=== PATIENT | male | born 1985 | race Native Hawaiian/Other Pacific Islander ===

== ENCOUNTER 2019-10-08 12:57 | Outpatient (CLI) | payer OTHER ==
--- NOTE | 2019-10-08 17:21 | MRI Report ---
Reason: NECK PAIN, RT RADICULAR SYMPTOMS Procedure Date: 10/08/2019 Accession Number: [id number] / [id number] Procedure: MRI - Cervical Spine W/O CPT Code: Final Report FULL RESULT: EXAM: MRI CERVICAL SPINE WITHOUT CONTRAST EXAM DATE: 10/08/2019 01:46 PM. CLINICAL HISTORY: Neck pain, right radicular symptoms. COMPARISONS: None. TECHNIQUE: Multiplanar, multisequence T1-weighted and fluid-sensitive sequences of the cervical spine without contrast. Other: None. FINDINGS: Neurologic Structures: The visualized posterior fossa structures are unremarkable. No signal abnormality in the visualized spinal cord. Alignment: No scoliosis or spondylolisthesis. Bone Marrow: No gross fractures or bone lesions. No marrow edema. Interspace Levels/Facets: C1-C2: Unremarkable. C2-C3: Unremarkable. C3-C4: Annular tear, focal central disk protrusion is present with mild cord indentation. Mild to moderate central stenosis. Mild bilateral foraminal stenosis. Series 801 image 21. C4-C5: Disk osteophyte complex is present, slight bulging of the ventral cord. The AP diameter of the canal is 8.2 mm. Mild to moderate central stenosis. Moderate bilateral foraminal stenosis. C5-C6: Disk osteophyte is quite prominent at this level. Disk extrusion seen left paracentral. No CSF surrounds cord, severe central stenosis, no abnormal cord signal, however. Series 301 image 8, series 801 image 13. AP distance of the canal in the midline is 7.5 mm. Severe central stenosis, severe bilateral foraminal stenosis. This focal extrusion is 2 mm from side to side, 5 mm from front to back and 9 mm from top to bottom. C6-C7: Left paracentral focal disk protrusion/extrusion is present with some indentation of the cord. No abnormal cord signal. The AP distance of the canal is 8 mm. Focal left paracentral extrusion is 7.7 x 4.7 mm transversely and extends for a mild distance of 6.9 mm. Series 801 image 9, series 301 image 9. Severe central stenosis. Severe bilateral foraminal stenosis. C7-T1: Minimal disk dehydration, otherwise unremarkable, no stenosis. Musculature: Mild fatty atrophy of the multifidus muscle is seen. Other: The paravertebral and prevertebral soft tissues are normal. IMPRESSION: 1. Spinal cord and posterior fossa appear unremarkable. In particular, no focal areas of abnormal increased T2 signal in the spinal cord. 2. C2-C3 is normal. 3. C3-C4 shows mild to moderate central stenosis and mild bilateral foraminal stenosis. 4. C4-C5 shows disk osteophyte complex in AP diameter of the canal measuring 8.2 mm. Mild central stenosis. Moderate bilateral foraminal stenosis. 5. C5-C6 shows disk osteophyte complex, disk extrusion seen left paracentral. No CSF surrounds the cord. Severe central stenosis. Severe bilateral foraminal stenosis also seen. 6. C6-C7 shows left paracentral focal disk protrusion/extrusion. Severe central stenosis. Severe bilateral foraminal stenosis. 7. C7-T1 shows minimal disk dehydration, otherwise unremarkable. No stenosis. [facility]
== END 2019-10-08 12:58 | disposition home or self-care (01) ==
LOC: DI 12:57
DX: M50.21 Other cervical disc displacement, high cervical region (principal); M50.31 Other cervical disc degeneration, high cervical region; M48.02 Spinal stenosis, cervical region
CPT/HCPCS: 72141

== ENCOUNTER 2021-06-22 14:01 | Outpatient (CLI) | payer OTHER ==
[2021-06-22 14:49] VITALS: BP 115/79
--- NOTE | 2021-06-22 14:49 | SLEEP CARE CONSULTATION ---
Information from patient questionnaire entered by Jeny Torres. I have reviewed and concur with the information entered by Jeny Torres. This document represents the service I personally performed and the decisions made by me, Doretha Blevins ARNP. History of Present Illness Service Date and Time: 06/22/2021 1401 Reason for Visit: New patient Chief Complaint: reports: Unrefreshed sleep, Snoring, Excessive daytime sleepiness, Observed pauses in breathing, Frequent awakenings at night Date of Onset: 5-7 years Usual bedtime: 10 pm Time it takes to fall asleep: 30-60 minutes Snores at night: Yes Observed to quit breathing while asleep: Yes Sleeps alone due to snoring: No Number of times waking at night: 2-4 Reasons for waking at night: reports: Snoring, Gasping for air. denies: Choking Toss, Turn, or Twitch while sleeping: Yes Recalls having dreams: Yes Usually gets out of bed at: 5 - 5:15 am Feels refreshed in the morning: No Morning headache: Yes (resolves sometimes in 30-60 minutes; 3 times a week) Sleepy or fatigued during the day: Yes Ever fallen asleep while driving: Yes (drowsy driving, no accidents) Takes day naps: No Dreams during day naps: No Prior sleep studies: No Additional HPI information: I had the pleasure of seeing TED CUEVAS today regarding the possibility of him having a sleep disorder. His current complaints are frequent night awakenings, snoring and pauses in breathing when sleeping. His tells him he snores and then he will stop. He will then take a deeper breath and continue snoring. He will wake up gasping for air and 2 times a night he wakes up to a "hard" snore. He feels like it it restricting his breathing. He states the act of going to sleep and staying asleep is difficulty. He has had a neck injury in the past, herniation/bulge in neck. This can make it hard to get comfortable enough to go to sleep quickly. He usually does not feel rested in the morning. He will wake up with a headache about 3 times a week. He wakes up feeling "hung over" with red eyes mostly. 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 Patient is and lives in [place]. Have you smoked in the past 12 months: Yes Cigarettes per day (20/pack): 10 Years of smokin Smoking Pack Years: 10.0 Alcohol use: Yes Alcohol amount and frequency: 1-2 drinks every 2 weeks Caffeine use: Yes Caffeine amount and frequency: 2-3 drinks a day Family History Family history of sleep disordered breathing: Yes Family Hx Sleep Apnea: Father: Snoring, Sibling: Snoring Allergies and Home Medications Drug allergies reviewed: Yes (NKDA) Home medication list reviewed: Yes (no daily medications) Allergy and home medication list: Robaxin, prn for neck/shoulder pain Review of Systems Weight gain over past 5 years: 20 Cardiovascular: denies: high blood pressure Gastrointestinal: reports: heartburn Neurological: denies: headaches Psychiatric: denies: anxiety, depression Ear/Nose/Throat: reports: wisdom teeth removed. denies: tonsillectomy Musculoskeletal: reports: joint pain, back pain, muscle pain or cramping, other (herniation and buldge disk in neck) Immunologic: reports: allergies to food or environment (agave oil - rash) Physical Exam Blood Pressure: 115/79 Cuff size: wrist Heart Rate: 64 O2 Saturation: 98 Height: 5 ft 4 in Weight: 157 lb Body Mass Index: 26.9 BMI Classification: Overweight Neck circumference: 16.2 (inches) Nostrils: partially obstructed Mouth and throat: narrow oropharynx Soft palate: long Hard palate: normal Uvula visualization: 25% Mallampati Class III Tongue: normal in size Tonsils: 2+ Neck: normal w/o lymphadenopathy or thyromegaly Heart: regular rate and rhythm Lungs: clear bilaterally Impression and Plan 1. Suspected Obstructive Sleep Apnea-Hypopnea Syndrome, as suggested by a history of loud and irregular snoring, observed cessation of breath while asleep, gasping or choking in sleep, morning headache, frequent awakening during the night, unrefreshed sleep, cognitive impairment, and excessive daytime sleepiness. Narrow oropharynx and obesity are common predisposing factors for obstructive sleep apnea-hypopnea syndrome. I recommend proceeding to polysomnography to confirm the diagnosis and to assess severity. If the patient has significant sleep disordered breathing, a manual CPAP titration study will also be performed to find the optimal treatment pressure. I informed the patient of what the sleep studies involve and after some discussion, obtained agreement to proceed. The pathophysiology of obstructive sleep apnea-hypopnea syndrome was discussed with the patient and health risks of cardiovascular and cerebrovas cular disease if not treated. AAS brochure for obstructive sleep apnea-hypopnea syndrome given and reviewed. Risks of drowsy driving discussed in detail and patient advised to avoid long distance driving and to taffy puller at the first sign of drowsiness. Patient agreed to plan. * Schedule polysomnography +- manual CPAP titration study and return in 1-2 weeks after the study to discuss result and initiate therapy. * Avoid long distance driving or driving when feeling sleepy. * Avoid alcohol, sedative and muscle relaxant around bedtime. * Attempt to lose weight. * Review instructions provided by trained office staff on how to prepare for the sleep study. * Return for follow-up after sleep study completed. Counseling Topics: Weight loss health impact Visit Type: In Office Time Spent with Patient (minutes): 32 Provider Statement: I spent 100% of the Face to Face Visit with the patient with greater than 50% spent counseling the patient and coordination of care.
== END 2021-06-22 14:02 | disposition home or self-care (01) ==
LOC: SC 14:01
PROVIDERS: ATTEND Nurse Practitioner Family
DX: R06.83 Snoring (principal); R06.81 Apnea, not elsewhere classified; R51.9 Headache, unspecified; G47.8 Other sleep disorders; R41.89 Other symptoms and signs involving cognitive functions and awareness; G47.10 Hypersomnia, unspecified; E66.3 Overweight; Z68.26 Body mass index [BMI] 26.0-26.9, adult
CPT/HCPCS: 99203; 99212

== ENCOUNTER 2021-06-28 08:45 | Outpatient (CLI) | payer OTHER | END 2021-06-28 08:46 | disposition home or self-care (01) | LOC: SC 08:45 | PROVIDERS: ATTEND Nurse Practitioner Family | DX: G47.33 Obstructive sleep apnea (adult) (pediatric) (principal); R09.02 Hypoxemia | CPT/HCPCS: 95806 ==

== ENCOUNTER 2021-07-07 13:17 | Outpatient (CLI) | payer OTHER ==
--- NOTE | 2021-07-07 13:48 | SLEEP CARE CONSULTATION ---
Information from patient questionnaire entered by Jeny Torres. I have reviewed and concur with the information entered by Jeny Torres. This document represents the service I personally performed and the decisions made by , Doretha Blevins ARNP. History of Present Illness Service Date and Time: 07/07/2021 1317 Initial [place] Sleepiness Scale score: 17 (in 2020) Current [place] Sleepiness Scale score: 17 Additional HPI information: TED CUEVAS returns for follow up and results of the recently performed home sleep study. I explained the pathophysiology behind obstructive sleep apnea. We then spent quite a bit of time discussing different treatment options. For mild obstructive sleep apnea, surgery and oral appliance are alternatives to nasal CPAP therapy but in moderate or severe cases, nasal CPAP is the most effective and reliable treatment. Because apnea is primarily in supine position, then positional management therapy could be effective. Methods discussed such as positioning with pillows, using a T-shirt with tennis balls in the back, and shown commercial products that have a pillow format on back to prevent supine sleep. I reviewed the impact of weight changes on sleep apnea and strongly recommended losing weight. After some discussion, the patient opted to go with the nasal CPAP therapy. Nasal autoCPAP set at 4-15 cmH20 will be ordered with rationale explained. A manual titration study will be ordered if unable to find optimal pressure with office adjustments. I explained how CPAP machine works with sample devices [employer] Dreamstation and [employer] [id number] and what to expect when using the machine. Using CPAP every night in order to get used to it was emphasized. Patient advised to put CPAP mask on before getting into bed so as not to fall asleep without CPAP. To assist acclimation to CPAP use, it could also be used for a short time during day while reading or watching TV. The patient was instructed to call the CPAP supplier to discuss any mechanical problem that may occur. If the mask given is uncomfortable or is difficult to keep on through the night even with adjustment, contact the CPAP supplier as many will replace with another mask style if notified before 30 days. If snoring or perceives is not getting enough air or too much air from the machine, notify this office. [facility] patient education PAP tips reviewed and given to patient. Patient counseled not drink alcohol less than 4 hours before bedtime as it can increase snoring and apnea. Patient was cautioned about risks of drowsy driving until sleepiness symptoms resolve. Sleep Study - Results Type of Sleep Study: Home sleep study Prior sleep studies: No Polysomnography/Home Sleep Study results: Physician Impression: The quality of the study is fair due to partial loss of airflow signal.. The length of the study is adequate (> 240 minutes). Please also see the tabulated and graphic data. 1. Obstructive Sleep Apnea-Hypopnea (ICD-10 G47.33), severe, with an AHI of 52.0 /hr and clarice SaO2 of 85%. During the study, the patient had 223 apneas (223 obstructive, 0 central, 0 mixed) and 69 hypopneas. The longest episode lasted 75.0 seconds. The patient did not sleep supine during this study (supine AHI was and non-supine, 52.07). 2. Hypoxemia (ICD-10 R09.02), mild, with the lowest oxygen saturation of 85 % and 25.6 minutes with SaO2 under 90%. Baseline oxygen saturation was normal (Average oxygen saturation was 93%). Allergies and Home Medications Home medication list reviewed: Yes (no changes) Review of Systems Review of systems same as previous: Yes (no changes) Physical Exam Heart Rate: 83 O2 Saturation: 98 Height: 5 ft 4 in Weight: 157 lb Body Mass Index: 26.9 BMI Classification: Overweight Impression and Plan 1. Obstructive Sleep Apnea-Hypopnea Syndrome, severe, with lowest oxygen saturation of 85%. Obviously this is the cause of the patients symptoms of unrefreshed sleep, and excessive daytime sleepiness. Positive pressure therapy could benefit his overall health and reduce risks for cardiovascular or cerebrovascular adverse events. As mentioned above, the patient will be started on nasal autoCPAP therapy with pressure set at 4-15 cmH2O. A manual titration study will be completed if unable to find optimal treatment pressure with office adjustments. Compliance guidelines also reviewed. A copy of compliance guidelines will be given for reference at check out. 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 2. Hypoxemia, mild, with the lowest oxygen saturation of 85 % and 25.6 minutes with SaO2 under 90%. His baseline oxygen saturation was normal with an average oxygen saturation of 93%. * Nasal auto CPAP therapy, pressure at 4-15 cm H2O. * Attempt to lose weight. * Avoid alcohol consumption near bedtime. * Avoid supine sleep until using CPAP. * The patient is again cautioned about driving until sleepiness completely resolves. * Return one month after CPAP obtained. I will assess response to therapy and compliance at that time. Counseling Topics: Weight loss health impact Visit Type: In Office Time Spent with Patient (minutes): 22 Provider Statement: I spent 100% of the Face to Face Visit with the patient with greater than 50% spent counseling the patient and coordination of care.
== END 2021-07-07 13:18 | disposition home or self-care (01) ==
LOC: SC 13:17
PROVIDERS: ATTEND Nurse Practitioner Family
DX: G47.33 Obstructive sleep apnea (adult) (pediatric) (principal); R09.02 Hypoxemia
CPT/HCPCS: 99212; 99213